=== PATIENT | male | born 1970 | race American Indian/Alaskan Native ===

== ENCOUNTER 2020-04-20 16:15 | Inpatient (IN) | payer MEDICAID ==
--- NOTE | 2020-04-20 16:45 | Cat Scan Report ---
NONENHANCED CT SCAN OF THE HEAD: INDICATION / CLINICAL INFORMATION: 49 years Male; MAIN. TECHNIQUE: Routine CT head without contrast. All CT scans at this location are performed using CT dos e reduction for ALARA by means of automated exposure control. COMPARISON: None. FINDINGS: BRAIN / INTRACRANIAL CONTENTS: No acute hemorrhage, mass effect, midline shift, hydrocephalus, or acu te, large territorial infarct. Multiple areas of chronic ischemia seen in both occipital lobes larger on the left side, right parietal lobe, left frontal lobe, right caudate head and right cerebellar he mispheric white matter No significant white matter abnormality. CRANIOCERVICAL JUNCTION: No significant abnormality. ORBITS: No significant abnormality of visualized orbits. SINUSES / MASTOIDS: No significant abnormality of the visualized paranasal sinuses or mastoid air brianne ls. ADDITIONAL FINDINGS: None. IMPRESSION: No hemorrhage or stroke mimics; no CT findings to suggest acute infarction Multiple areas of chronic ischemia in both cerebral hemispheres and right cerebellar hemisphere CODE STROKE: Time of Communication (MARRIAGE AND FAMILY THERAPIST/CDT): 3:40 PM Central standard time Licensed Practitioner Receiving Report: ER physician Signer Name: Lukas Manjarrez MD Signed: 04/20/2020 4:41 PM Workstation Name: [id number]
[2020-04-20 17:09] LABS: Basophils # (Auto) 0.1 K/mm3 (0.0-0.1); Basophils % (Auto) 1.3 % (0.0-1.8); Eosinophils # (Auto) 0.3 K/mm3 (0.0-0.4); Eosinophils % (Auto) 3.8 % (0.0-4.3); Hematocrit 45.8 % (35.5-45.6); Hemoglobin 15.3 gm/dl (11.8-15.2); Lymphocytes # (Auto) 1.9 K/mm3 (1.2-5.4); Lymphocytes % (Auto) 28.7 % (13.4-35.0); Mean Corpuscular HGB Conc 33 % (32-34); Mean Corpuscular Volume 86 fl (84-94); Monocytes # (Auto) 0.7 K/mm3 (0.0-0.8); Monocytes % (Auto) 10.8 % (0.0-7.3); Platelet Count 296 K/mm3 (140-440); Red Blood Count 5.31 M/mm3 (3.65-5.03); Red Cell Distribution Width 14.1 % (13.2-15.2)
[2020-04-20 17:19] LABS: INR 1.19 (0.87-1.13)
[2020-04-20 17:20] LABS: Partial Thromboplastin Time 33.9 Sec. (24.2-36.6)
[2020-04-20 17:21] LABS: BUN/Creatinine Ratio 9; Blood Urea Nitrogen 14 mg/dL (9-20); Calcium 9.7 mg/dL (8.4-10.2); Hemolysis Index 11
--- NOTE | 2020-04-20 17:33 | Emergency Department Report ---
ED Neuro Deficit HPI - General Chief Complaint: Neuro Symptoms/Deficit Stated Complaint: RT ARM NUMBNESS Time Seen by Provider: 04/20/20 16:21 Source: patient, EMS Mode of arrival: Stretcher Limitations: Physical Limitation - History of Present Illness Initial Comments: Patient is 49 years old male with history of hypertension and previous stroke with right side residual weakness. Patient brought to the emergency room from home as a code stroke. Patient presented with numbness and tingling sensation to the right upper and lower extremity. Patient stated that he went to bed last night around 11 PM with his baseline however he woke up this afternoon around 3 PM with the aforementioned symptoms. Patient denied any increased weakness. Patient denied any headache, neck pain or any new left-sided weakness. Patient also indicated that he has multiple strokes before and he has weakness on both sides. Patient also has a baseline aphasia and dysarthria. Stroke protocol immediately initiated and patient moved to CT for stat CT brain without co ntrast. Stroke teleneurology immediately consulted and patient examined by Dr. Mccain via video conference. CT brain is negative for acute finding. She stated that patient is not a TPA candidate given the unknown time of onset. She also indicated that patient does not need a CTA neck and brain since his symptom is not consistent with obstructed large vessels disease. -: unknown Location: right arm, right leg Presenting Symptoms: Present: Facial Droop/Numbness History of same: Yes Place: home - Related Data Home Medications: Previous Rx's Medication Instructions Recorded Last Taken Type Ondansetron [Zofran Odt] 4 mg PO Q8HR PRN #14 tab.rapdis 03/26/18 Unknown Rx traMADoL [Ultram 50 MG tab] 50 mg PO Q4HR PRN #14 tablet 03/26/18 Unknown Rx Allergies/Adverse Reactions: Allergies Allergy/AdvReac Type Severity Reaction Status Date / Time No Known Allergies Allergy Verified 04/20/20 16:19 ED Review of Systems ROS: Stated complaint: RT ARM NUMBNESS Other details as noted in HPI Comment: All other systems reviewed and negative Constitutional: denies: chills, fever Respiratory: denies: cough, shortness of breath, SOB with exertion, SOB at rest, wheezing Cardiovascular: denies: chest pain Gastrointestinal: denies: abdominal pain, nausea, vomiting Musculoskeletal: denies: back pain Neurological: weakness (chronic), numbness. denies: headache ED Past Medical Hx - Past Medical History Hx Hypertension: Yes Hx CVA: Yes Hx Arthritis: Yes - Surgical History Additional Surgical History: Left wrist, Right Total Knee - Social History Smoking Status: Current Every Day Smoker Substance Use Type: None - Medications Home Medications: Home Medications Medication Instructions Recorded Confirmed Last Taken Type Ondansetron [Zofran Odt] 4 mg PO Q8HR PRN #14 tab.rapdis 03/26/18 Unknown Rx traMADoL [Ultram 50 MG tab] 50 mg PO Q4HR PRN #14 tablet 03/26/18 Unknown Rx ED Neuro Physical Exam - General Limitations: Physical Limitation General appearance: alert, in no apparent distress Suspected Stroke: Yes - Head Head exam: Present: atraumatic, normocephalic, normal inspection - Eye Eye exam: Present: normal appearance - ENT ENT exam: Present: normal exam, normal orophraynx, mucous membranes moist - Neck Neck exam: Present: normal inspection, full ROM. Absent: tenderness, meningismus - Respiratory Respiratory exam: Present: normal lung sounds bilaterally - Cardiovascular Cardiovascular Exam: Present: regular rate, normal rhythm, normal heart sounds - GI/Abdominal GI/Abdominal exam: Present: soft, normal bowel sounds. Absent: distended, tenderness, guarding, rebound, rigid, organomegaly, mass, bruit, pulsatile mass, hernia - Extremities Exam Extremities exam: Present: normal inspection, full ROM, normal capillary refill - Back Exam Back exam: Present: normal inspection, full ROM. Absent: CVA tenderness (R), CVA tenderness (L) - Neurological Exam Neurological exam: Present: alert, oriented X3, CN II-XII intact - NIHSS Assessment Interval: Baseline 1a. Level of Consciousness: alert/keenly responsive 1b. LOC Questions: answers both correctly 1c. LOC Commands: performs tasks correctly 2. Best Gaze: normal 3. Visual: complete hemianopia 4. Facial Palsy: minor paralysis 5b. Motor Arm Right: drift 5a. Motor Arm Left: no drift 6a. Motor Leg Left: no drift 6b. Motor Leg Right: no drift 7. Limb Ataxia: absent 8. Sensory: mild/moderate sensory loss 9. Best Language: mild/moderate aphasia 10. Dysarthria: mild/moderate dysarthria 11. Extinction/Inattention: no abnormality Total Score: 7 Stroke Severity: Moderate Stroke - Psychiatric Psychiatric exam: Present: normal mood - Skin Skin exam: Present: warm, intact, normal color ED Course Vital Signs 04/20/20 04/20/20 04/20/20 16:58 17:16 17:31 Temperature 98.4 F Pulse Rate 76 83 Respiratory 12 16 Rate Blood Pressure 138/89 O2 Sat by Pulse 98 96 Oximetry - Lab Data Result diagrams: 04/20/20 17:00 04/20/20 17:00 Lab Results 04/20/20 04/20/20 04/20/20 Range/Units 17:00 17:00 17:00 WBC 6.8 (4.5-11.0) K/mm3 RBC 5.31 H (3.65-5.03) M/mm3 Hgb 15.3 H (11.8-15.2) gm/dl Hct 45.8 H (35.5-45.6) % MCV 86 (84-94) fl MCH 29 (28-32) pg MCHC 33 (32-34) % RDW 14.1 (13.2-15.2) % Plt Count 296 (140-440) K/mm3 Lymph % (Auto) 28.7 (13.4-35.0) % [place] % (Auto) 10.8 H (0.0-7.3) % Eos % (Auto) 3.8 (0.0-4.3) % Baso % (Auto) 1.3 (0.0-1.8) % Lymph # (Auto) 1.9 (1.2-5.4) K/mm3 [place] # (Auto) 0.7 (0.0-0.8) K/mm3 Eos # (Auto) 0.3 (0.0-0.4) K/mm3 Baso # (Auto) 0.1 (0.0-0.1) K/mm3 Seg Neutrophils % 55.4 (40.0-70.0) % Seg Neutrophils # 3.8 (1.8-7.7) K/mm3 PT 15.1 H (12.2-14.9) Sec. INR 1.19 H (0.87-1.13) APTT 33.9 (24.2-36.6) Sec. Thrombin Time (15.1-19.6) Sec. Sodium 137 (137-145) mmol/L Potassium 4.3 (3.6-5.0) mmol/L Chloride 101.9 (98-107) mmol/L Carbon Dioxide 24 (22-30) mmol/L Anion Gap 15 mmol/L BUN 14 (9-20) mg/dL Creatinine 1.6 H (0.8-1.3) mg/dL Estimated GFR 55 ml/min BUN/Creatinine Ratio 9 % Glucose 101 H (75-100) mg/dL Calcium 9.7 (8.4-10.2) mg/dL Troponin T < 0.010 (0.00-0.029) ng/mL 04/20/20 Range/Units 17:00 WBC (4.5-11.0) K/mm3 RBC (3.65-5.03) M/mm3 Hgb (11.8-15.2) gm/dl Hct (35.5-45.6) % MCV (84-94) fl MCH (28-32) pg MCHC (32-34) % RDW (13.2-15.2) % Plt Count (140-440) K/mm3 Lymph % (Auto) (13.4-35.0) % [place] % (Auto) (0.0-7.3) % Eos % (Auto) (0.0-4.3) % Baso % (Auto) (0.0-1.8) % Lymph # (Auto) (1.2-5.4) K/mm3 [place] # (Auto) (0.0-0.8) K/mm3 Eos # (Auto) (0.0-0.4) K/mm3 Baso # (Auto) (0.0-0.1) K/mm3 Seg Neutrophils % (40.0-70.0) % Seg Neutrophils # (1.8-7.7) K/mm3 PT (12.2-14.9) Sec. INR (0.87-1.13) APTT (24.2-36.6) Sec. Thrombin Time 14.8 L (15.1-19.6) Sec. Sodium (137-145) mmol/L Potassium (3.6-5.0) mmol/L Chloride (98-107) mmol/L Carbon Dioxide (22-30) mmol/L Anion Gap mmol/L BUN (9-20) mg/dL Creatinine (0.8-1.3) mg/dL Estimated GFR ml/min BUN/Creatinine Ratio % Glucose (75-100) mg/dL Calcium (8.4-10.2) mg/dL Troponin T (0.00-0.029) ng/mL - EKG Data -: EKG Interpreted by Me EKG shows normal: sinus rhythm Rate: normal Interpretation: no acute changes - Radiology Data Radiology results: report reviewed - Medical Decision Making Patient is 49 years old male with history of hypertension and previous stroke with right side residual weakness. Patient brought to the emergency room from home as a code stroke. Patient presented with numbness and tingling sensation to the right upper and lower extremity. Patient stated that he went to bed last night around 11 PM with his baseline however he woke up this afternoon around 3 PM with the aforementioned symptoms. Patient denied any increased weakness. Patient denied any headache, neck pain or any new left-sided weakness. Patient also indicated that he has multiple strokes before and he has weakness on both sides. Patient also has a baseline aphasia and dysarthria. Stroke protocol immediately initiated and patient moved to CT for stat CT brain without contrast. Stroke teleneurology immediately consulted and patient examined by Dr. Mccain via video conference. CT brain is negative for acute finding. She stated that patient is not a TPA candidate given the unknown time of onset. She also indicated that patient does not need a CTA neck and brain since his symptom is not consistent with obstructed large vessels disease. Labs reviewed and is unremarkable. EKG shows sinus rhythm. I discussed the patient with Dr. Burnette, he agreed to admit the patient to medical service for further management. Critical Care Time: Yes Critical care time in (mins) excluding proc time.: 30 Critical care attestation.: If time is entered above; I have spent that time in minutes in the direct care of this critically ill patient, excluding procedure time. ED Disposition Clinical Impression: Acute CVA (cerebrovascular accident) Stroke Qualifiers: CVA mechanism: unspecified Qualified Code(s): I63.9 - Cerebral infarction, unspecified Disposition: OP ADMIT IP TO THIS HOSP Is pt being admited?: Yes Condition: Stable Referrals: PRIMARY CARE, [Primary Care Provider] - 3-5 Days
--- NOTE | 2020-04-20 17:35 | Emergency Department Report ---
ED Neuro Deficit HPI - General Chief Complaint: Neuro Symptoms/Deficit Stated Complaint: RT ARM NUMBNESS Time Seen by Provider: 04/20/20 16:21 Source: patient, EMS Mode of arrival: Stretcher Limitations: Physical Limitation - History of Present Illness Initial Comments: [facility] Date of Service: 04/20/2020 16:21:47 Impression: I63.9 - Cerebrovascular accident (CVA), unspecified mechanism (HCC) Comments/Sign-Out: 49 year old male with a history of multiple strokes who presents with right arm tingling. Presentation may be due to new stroke vs exacerbation of prior strokes. Metrics: Last Known Well: 04/19/2020 23:00:00 [facility] Notification Time: 04/20/2020 16:20:49 Arrival Time: 04/20/2020 16:15:00 Stamp Time: 04/20/2020 16:21:47 Time First Login Attempt: 04/20/2020 16:25:00 Video Start Time: 04/20/2020 16:25:00 Symptoms: Right arm tingling NIHSS Start Assessment Time: 04/20/2020 16:30:00 Patient is not a candidate for Alteplase/Activase. Patient was not deemed candidate for Alteplase/Activase thrombolytics because of Resolved symptoms (no residual disabling symptoms). Video End Time: 04/20/2020 16:44:31 CT head showed no acute hemorrhage or acute core infarct. Clinical Presentation is not Suggestive of Large Vessel Occlusive Disease ED Physician notified of diagnostic impression and management plan on 04/20/2020 16:44:00 Our recommendations are outlined below. Recommendations: Activate Stroke Protocol Admission/Order Set Stroke/Telemetry Floor Neuro Checks Bedside Swallow Eval DVT Prophylaxis IV Fluids, Normal Saline Head of Bed 30 Degrees Euglycemia and Avoid Hyperthermia (PRN Acetaminophen) Antiplatelet Therapy Recommended Routine Consultation with Inhouse Neurology for Follow up Care Sign Out: Discussed with Emergency Department Provider History of Present Illness: Patient is a 49 year old Male. Patient was brought by EMS for symptoms of Right arm tingling 49 year old male with a history of stroke in August 2019 with residual right side weakness who presents to the hospital because of right arm tingling. Patient woke up this afternoon around 15:30. When he woke up from his nap he noticed tingling in his right arm from his elbow down. He denies any other new stroke like symptoms. Past Medical History: Hypertension Hyperlipidemia Stroke There is NO history of Diabetes Mellitus Examination: BP(138/89), Pulse(76), Blood Glucose(101) 1A: Level of Consciousness - Alert; keenly responsive + 0 1B: Ask Month and Age - Both Questions Right + 0 1C: Blink Eyes & Squeeze Hands - Performs Both Tasks + 0 2: Test Horizontal Extraocular Movements - Normal + 0 3: Test Visual [place] - Complete Hemianopia + 2 4: Test Facial Palsy (Use Grimace if Obtunded) - Minor paralysis (flat nasolabial fold, smile asymmetry) + 1 5A: Test Left Arm Motor Drift - No Drift for 10 Seconds + 0 5B: Test Right Arm Motor Drift - Drift, but doesn't hit bed + 1 6A: Test Left Leg Motor Drift - No Drift for 5 Seconds + 0 6B: Test Right Leg Motor Drift - No Drift for 5 Seconds + 0 7: Test Limb Ataxia (FNF/Heel-Etienne) - No Ataxia + 0 8: Test Sensation - Mild-Moderate Loss: Less Sharp/More Dull + 1 9: Test Language/Aphasia - Mild-Moderate Aphasia: Some Obvious Changes, Without Significant Limitation + 1 10: Test Dysarthria - Mild-Moderate Dysarthria: Slurring but can be understood + 1 11: Test Extinction/Inattention - No abnormality + 0 NIHSS Score: 7 Pre-Morbid Modified Ranking Scale: 4 Points = Moderately severe disability; unable to walk and attend to bodily nee ds without assistance Patient/Family was informed the Neurology Consult would happen via TeleHealth consult by way of interactive audio and video telecommunications and consented to receiving care in this manner. Due to the immediate potential for life-threatening deterioration due to underlying acute neurologic illness, I spent 30 minutes providing critical care. This time includes time for face to face visit via telemedicine, review of medical records, imaging studies and discussion of findings with providers, the patient and/or family. Dr Susana Alfaro [facility] Case [id number] - Related Data Home Medications: Previous Rx's Medication Instructions Recorded Last Taken Type Ondansetron [Zofran Odt] 4 mg PO Q8HR PRN #14 tab.rapdis 03/26/18 Unknown Rx traMADoL [Ultram 50 MG tab] 50 mg PO Q4HR PRN #14 tablet 03/26/18 Unknown Rx Allergies/Adverse Reactions: Allergies Allergy/AdvReac Type Severity Reaction Status Date / Time No Known Allergies Allergy Verified 04/20/20 16:19 ED Review of Systems ROS: Stated complaint: RT ARM NUMBNESS Other details as noted in HPI ED Past Medical Hx - Past Medical History Hx Hypertension: Yes Hx CVA: Yes Hx Arthritis: Yes - Surgical History Additional Surgical History: Left wrist, Right Total Knee - Social History Smoking Status: Never Smoker - Medications Home Medications: Home Medications Medication Instructions Recorded Confirmed Last Taken Type Ondansetron [Zofran Odt] 4 mg PO Q8HR PRN #14 tab.rapdis 03/26/18 Unknown Rx traMADoL [Ultram 50 MG tab] 50 mg PO Q4HR PRN #14 tablet 03/26/18 Unknown Rx ED Neuro Physical Exam - General Limitations: Physical Limitation Suspected Stroke: Yes - NIHSS Assessment Interval: Baseline 1a. Level of Consciousness: alert/keenly responsive 1b. LOC Questions: answers both correctly 1c. LOC Commands: performs tasks correctly 2. Best Gaze: normal 3. Visual: complete hemianopia 4. Facial Palsy: minor paralysis 5b. Motor Arm Right: drift 5a. Motor Arm Left: no drift 6a. Motor Leg Left: no drift 6b. Motor Leg Right: no drift 7. Limb Ataxia: absent 8. Sensory: mild/moderate sensory loss 9. Best Language: mild/moderate aphasia 10. Dysarthria: mild/moderate dysarthria 11. Extinction/Inattention: no abnormality Total Score: 7 Stroke Severity: Moderate Stroke ED Course Vital Signs 04/20/20 04/20/20 04/20/20 16:58 17:16 17:31 Temperature 98.4 F Pulse Rate 76 83 Respiratory 12 16 Rate Blood Pressure 138/89 O2 Sat by Pulse 98 96 Oximetry - Lab Data Result diagrams: 04/20/20 17:00 04/20/20 17:00 Lab Results 04/20/20 04/20/20 04/20/20 Range/Units 17:00 17:00 17:00 WBC 6.8 (4.5-11.0) K/mm3 RBC 5.31 H (3.65-5.03) M/mm3 Hgb 15.3 H (11.8-15.2) gm/dl Hct 45.8 H (35.5-45.6) % MCV 86 (84-94) fl MCH 29 (28-32) pg MCHC 33 (32-34) % RDW 14.1 (13.2-15.2) % Plt Count 296 (140-440) K/mm3 Lymph % (Auto) 28.7 (13.4-35.0) % [place] % (Auto) 10.8 H (0.0-7.3) % Eos % (Auto) 3.8 (0.0-4.3) % Baso % (Auto) 1.3 (0.0-1.8) % Lymph # (Auto) 1.9 (1.2-5.4) K/mm3 [place] # (Auto) 0.7 (0.0-0.8) K/mm3 Eos # (Auto) 0.3 (0.0-0.4) K/mm3 Baso # (Auto) 0.1 (0.0-0.1) K/mm3 Seg Neutrophils % 55.4 (40.0-70.0) % Seg Neutrophils # 3.8 (1.8-7.7) K/mm3 PT 15.1 H (12.2-14.9) Sec. INR 1.19 H (0.87-1.13) APTT 33.9 (24.2-36.6) Sec. Thrombin Time (15.1-19.6) Sec. Sodium 137 (137-145) mmol/L Potassium 4.3 (3.6-5.0) mmol/L Chloride 101.9 (98-107) mmol/L Carbon Dioxide 24 (22-30) mmol/L Anion Gap 15 mmol/L BUN 14 (9-20) mg/dL Creatinine 1.6 H (0.8-1.3) mg/dL Estimated GFR 55 ml/min BUN/Creatinine Ratio 9 % Glucose 101 H (75-100) mg/dL Calcium 9.7 (8.4-10.2) mg/dL Troponin T < 0.010 (0.00-0.029) ng/mL 04/20/20 Range/Units 17:00 WBC (4.5-11.0) K/mm3 RBC (3.65-5.03) M/mm3 Hgb (11.8-15.2) gm/dl Hct (35.5-45.6) % MCV (84-94) fl MCH (28-32) pg MCHC (32-34) % RDW (13.2-15.2) % Plt Count (140-440) K/mm3 Lymph % (Auto) (13.4-35.0) % [place] % (Auto) (0.0-7.3) % Eos % (Auto) (0.0-4.3) % Baso % (Auto) (0.0-1.8) % Lymph # (Auto) (1.2-5.4) K/mm3 [place] # (Auto) (0.0-0.8) K/mm3 Eos # (Auto) (0.0-0.4) K/mm3 Baso # (Auto) (0.0-0.1) K/mm3 Seg Neutrophils % (40.0-70.0) % Seg Neutrophils # (1.8-7.7) K/mm3 PT (12.2-14.9) Sec. INR (0.87-1.13) APTT (24.2-36.6) Sec. Thrombin Time 14.8 L (15.1-19.6) Sec. Sodium (137-145) mmol/L Potassium (3.6-5.0) mmol/L Chloride (98-107) mmol/L Carbon Dioxide (22-30) mmol/L Anion Gap mmol/L BUN (9-20) mg/dL Creatinine (0.8-1.3) mg/dL Estimated GFR ml/min BUN/Creatinine Ratio % Glucose (75-100) mg/dL Calcium (8.4-10.2) mg/dL Troponin T (0.00-0.029) ng/mL Critical care attestation.: If time is entered above; I have spent that time in minutes in the direct care of this critically ill patient, excluding procedure time. ED Disposition Clinical Impression: Stroke Qualifiers: CVA mechanism: unspecified Qualified Code(s): I63.9 - Cerebral infarction, unspecified Disposition: DC-09 OP ADMIT IP TO THIS HOSP Is pt being admited?: Yes Condition: Stable Referrals: PRIMARY CARE,MD [Primary Care Provider] - 3-5 Days
[2020-04-20] MEDS ORDERED: MAGNESIUM HYDROXIDE (MOM) ORAL LIQD UDC PO PRN (18:42)
[2020-04-20] MEDS ORDERED: PROMETHAZINE 25 MG RECT SUPP PR PRN (18:42)
[2020-04-20] MEDS ORDERED: METOCLOPRAMIDE 10 MG TAB PO PRN (18:42)
[2020-04-20] MEDS ORDERED: ACETAMINOPHEN 325 MG TAB PO PRN (18:42)
[2020-04-20] MEDS ORDERED: ONDANSETRON 4 MG/2 ML INJ IV PRN (18:42)
--- NOTE | 2020-04-20 18:42 | History and Physical Report ---
History of Present Illness Chief complaint: I cant move my arm History of present illness: 49 YO Male with HTN, CVA with RHP, OA, Nicotine Dependence presents to ED for evaluation. Pt states that he has experienced new onset of worsening weakness in his right arm. Pt states that he was in his usual state of health at bedtime around 2200hrs. Pt reports that he awoke from sleep around 0300hrs with worsening right arm weakness and was unable to move his right arm as well as slurred speech which is worse than his baseline. EMS notified and upon arrival the patient was found to be in distress with a neurological deficit. A code stroke was called and the patient was transported to [facility] for further care and evaluation of the aforementioned symptoms. The patient was seen and evaluated in ED and was found to have clinical symptoms consistent with CVA. Pt initiated on CVA protocol. Teleneurology consulted. Pt deemed not a candidate for TPA as per teleneurology. Patient is 49 years old male with history of hypertension and previous stroke with right side residual weakness. Patient brought to the emergency room from home as a code stroke. Patient presented with numbness and tingling sensation to the right upper and lower extremity. Patient stated that he went to bed last night around 11 PM with his baseline however he woke up this afternoon around 3 PM with the aforementioned symptoms. Patient denied any increased weakness. Patient denied any headache, neck pain or any new left-sided weakness. Patient also indicated that he has multiple strokes before and he has weakness on both sides. Patient also has a baseline aphasia and dysarthria. Stroke protocol immediately initiated and patient moved to CT for stat CT brain without contrast. Stroke teleneurology immediately consulted and patient examined by Dr. Mccain via video conference. CT brain is negative for acute finding. She stated that patient is not a TPA candidate given the unknown time of onset. She also indicated that patient does not need a CTA neck and brain since his symptom is not consistent with obstructed large vessels disease. -: unknown Location: right arm, right leg Presenting Symptoms: Present: Facial Droop/Numbness History of same: Yes Place: home - Related Data Home Medications: Previous Rx's Medication Instructions Recorded Last Taken Type Ondansetron [Zofran Odt] 4 mg PO Q8HR PRN #14 tab.rapdis 03/26/18 Unknown Rx traMADoL [Ultram 50 MG tab] 50 mg PO Q4HR PRN #14 tablet 03/26/18 Unknown Rx Allergies/Adverse Reactions: Allergies Allergy/AdvReac Type Severity Reaction Status Date / Time No Known Allergies Allergy Verified 04/20/20 16:19 ED Review of Systems ROS: Stated complaint: RT ARM NUMBNESS Other details as noted in HPI Comment: All other systems reviewed and negative Constitutional: denies: chills, fever Respiratory: denies: cough, shortness of breath, SOB with exertion, SOB at rest, wheezing Cardiovascular: denies: chest pain Gastrointestinal: denies: abdominal pain, nausea, vomiting Musculoskeletal: denies: back pain Neurological: weakness (chronic), numbness. denies: headache ED Past Medical Hx - Past Medical History Hx Hypertension: Yes Hx CVA: Yes Hx Arthritis: Yes - Surgical History Additional Surgical History: Left wrist, Right Total Knee - Social History Smoking Status: Current Every Day Smoker Substance Use Type: None Past History Past Medical History: arthritis, hypertension, stroke Past Surgical History: No surgical history Social history: single, smoking. denies: alcohol abuse, prescription drug abuse Family history: hypertension Medications and Allergies Allergies Allergy/AdvReac Type Severity Reaction Status Date / Time No Known Allergies Allergy Verified 04/20/20 16:19 Home Medications Medication Instructions Recorded Confirmed Last Taken Type Ondansetron [Zofran Odt] 4 mg PO Q8HR PRN #14 tab.rapdis 03/26/18 Unknown Rx traMADoL [Ultram 50 MG tab] 50 mg PO Q4HR PRN #14 tablet 03/26/18 Unknown Rx Review of Systems Constitutional: no weight loss, no weight gain, no fever, no chills Ears, nose, mouth and throat: no ear pain, no ear discharge, no tinnitis, no decreased hearing, no nose pain, no nasal congestion Cardiovascular: no chest pain, no orthopnea, no rapid/irregular heart beat, no edema, no syncope, no lightheadedness Respiratory: no cough, no cough with sputum, no excessive sputum, no hemoptysis, no shortness of breath Gastrointestinal: no abdominal pain, no nausea, no vomiting, no diarrhea, no constipation Genitourinary Male: no hematuria, no flank pain, no discharge, no urinary frequency, no urinary hesitancy Rectal: no pain, no incontinence, no bleeding Musculoskeletal: no neck stiffness, no neck pain, no shooting arm pain, no arm numbness/tingling, no low back pain, no shooting leg pain Integumentary: no rash, no pruritis, no redness, no sores, no wounds Neurological: weakness, change in speech, gait dysfunction, motor disturbance, no transient paralysis, no paralysis, no parathesias, no numbness, no tingling, no vertigo Psychiatric: no anxiety, no memory loss, no change in sleep habits, no sleep disturbances, no insomnia, no hypersomnia, no change in appetite Endocrine: no cold intolerance, no heat intolerance, no polyphagia, no excessive thirst, no polydipsia, no nocturia Hematologic/Lymphatic: no easy bruising, no easy bleeding Allergic/Immunologic: no urticaria, no allergic rhinitis Exam - Constitutional Vitals: Temp Pulse Resp BP Pulse Ox 98.4 F 83 16 138/89 96 04/20/20 17:31 04/20/20 17:16 04/20/20 17:16 04/20/20 17:16 04/20/20 17:16 General appearance: Present: mild distress - EENT Eyes: Present: PERRL ENT: hearing intact, clear oral mucosa - Neck Neck: Present: supple, normal ROM - Respiratory Respiratory effort: normal Respiratory: bilateral: CTA - Cardiovascular Heart Sounds: Present: S1 & S2. Absent: rub, click - Extremities Extremities: pulses symmetrical, No edema Peripheral Pulses: within normal limits - Abdominal General gastrointestinal: Present: soft, non-tender, non-distended, normal bowel sounds Male genitourinary: Present: normal - Integumentary Integumentary: Present: clear, warm, dry - Musculoskeletal Musculoskeletal: right sided weakness - Psychiatric Psychiatric: appropriate mood/affect, intact judgment & insight - Neurologic Neurologic: CNII-XII intact, focal deficits, no moves all extremities, no gait normal HEART Score - HEART Score Troponin: Troponin T < 0.010 ng/mL (0.00-0.029) 04/20/20 17:00 Results - Labs CBC & Chem 7: 04/20/20 17:00 04/20/20 17:00 Labs: Abnormal lab results 04/20/20 04/20/20 04/20/20 Range/Units 17:00 17:00 17:00 RBC 5.31 H (3.65-5.03) M/mm3 Hgb 15.3 H (11.8-15.2) gm/dl Hct 45.8 H (35.5-45.6) % [place] % (Auto) 10.8 H (0.0-7.3) % PT 15.1 H (12.2-14.9) Sec. INR 1.19 H (0.87-1.13) Thrombin Time (15.1-19.6) Sec. Creatinine 1.6 H (0.8-1.3) mg/dL Glucose 101 H (75-100) mg/dL 04/20/20 Range/Units 17:00 RBC (3.65-5.03) M/mm3 Hgb (11.8-15.2) gm/dl Hct (35.5-45.6) % [place] % (Auto) (0.0-7.3) % PT (12.2-14.9) Sec. INR (0.87-1.13) Thrombin Time 14.8 L (15.1-19.6) Sec. Creatinine (0.8-1.3) mg/dL Glucose (75-100) mg/dL Assessment and Plan - Patient Problems (1) CVA (cerebral vascular accident) Current Visit: Yes Status: Acute Qualifiers: Laterality of affected vessel: right Plan to address problem: CVA Protocol: CT head, Physical therapy, Occupational Therapy, Speech Therapy, Antiplatelet therapy, lipid panel, statin therapy, neuro check, supportive care. (2) ARIEL (acute kidney injury) Current Visit: Yes Status: Acute Plan to address problem: Monitor UOP q shift, bmp, repeat bmp in am to monitor serum creatnine. (3) Nicotine dependence Current Visit: Yes Status: Acute Qualifiers: Nicotine product type: cigarettes Substance use status: in withdrawal Qualified Code(s): F17.213 - Nicotine dependence, cigarettes, with withdrawal Plan to address problem: supportive care, smoking cessation counseling, behavioral change counseling +15 minutes. (4) Right hemiparesis Current Visit: Yes Status: Acute Plan to address problem: PT consulted, supportive care. (5) HTN (hypertension) Current Visit: Yes Status: Acute Qualifiers: Hypertension type: essential hypertension Qualified Code(s): I10 - Essential (primary) hypertension Plan to address problem: Monitor BP q shift, continue medical management. (6) Osteoarthritis Current Visit: Yes Status: Acute Plan to address problem: NSAID therapy as tolerated, supportive care. (7) DVT prophylaxis Current Visit: Yes Status: Acute Plan to address problem: SCD to BLE while in bed, prophylactic anticoagulation
[2020-04-21 05:42] LABS: Chol/HDL Ratio 2.78 %
[2020-04-21] MEDS: ASPIRIN 325 MG TAB PO SCH (10:30)
--- NOTE | 2020-04-21 21:19 | Progress Note ---
Assessment and Plan - Patient Problems (1) CVA (cerebral vascular accident) Current Visit: Yes Status: Acute Qualifiers: Laterality of affected vessel: right Plan to address problem: CVA Protocol: CT head reviewed, Physical therapy, Occupational Therapy, Speech Therapy, Antiplatelet therapy, lipid panel, statin therapy, neuro check, supportive care. Discharge planning in a.m. with home physical therapy and Occupational Therapy. (2) ARIEL (acute kidney injury) Current Visit: Yes Status: Acute Plan to address problem: Monitor UOP q shift, bmp, repeat bmp in am to monitor serum creatnine. (3) Nicotine dependence Current Visit: Yes Status: Acute Qualifiers: Nicotine product type: cigarettes Substance use status: in withdrawal Qualified Code(s): F17.213 - Nicotine dependence, cigarettes, with withdrawal Plan to address problem: supportive care, smoking cessation counseling, behavioral change counseling +15 minutes. (4) Right hemiparesis Current Visit: Yes Status: Acute Plan to address problem: PT consulted, supportive care. (5) HTN (hypertension) Current Visit: Yes Status: Acute Qualifiers: Hypertension type: essential hypertension Qualified Code(s): I10 - Essential (primary) hypertension Plan to address problem: Monitor BP q shift, continue medical management. (6) Osteoarthritis Current Visit: Yes Status: Acute Plan to address problem: NSAID therapy as tolerated, supportive care. (7) DVT prophylaxis Current Visit: Yes Status: Acute Plan to address problem: SCD to BLE while in bed, prophylactic anticoagulation History Interval history: 49 YO Male with HTN, CVA with RHP, OA, Nicotine Dependence HD #2 with CVA. Patient resting comfortably in bed. Patient denies pain. No reported nursing events. Discharge planning in a.m. Hospitalist Physical - Constitutional Vitals: Temp Pulse Resp BP Pulse Ox 98.9 F 89 20 107/79 96 04/21/20 20:10 04/21/20 20:10 04/21/20 20:10 04/21/20 20:10 04/21/20 20:10 General appearance: Present: mild distress - EENT Eyes: Present: PERRL, EOM intact - Neck Neck: Present: supple - Respiratory Respiratory: bilateral: CTA - Cardiovascular Rhythm: regular Heart Sounds: Present: S1 & S2 - Extremities Extremities: no ischemia Peripheral Pulses: within normal limits - Abdominal General gastrointestinal: soft, non-tender, non-distended - Integumentary Integumentary: Present: clear, dry - Psychiatric Psychiatric: cooperative - Neurologic Neurologic: CNII-XII intact, focal deficits, no gait normal HEART Score - HEART Score Troponin: Troponin T < 0.010 ng/mL (0.00-0.029) 04/20/20 17:00 Results - Labs CBC & Chem 7: 04/20/20 17:00 12 17:00 Labs: Laboratory Last Values WBC 6.8 K/mm3 (4.5-11.0) 04/20/20 17:00 RBC 5.31 M/mm3 (3.65-5.03) H 04/20/20 17:00 Hgb 15.3 gm/dl (11.8-15.2) H 04/20/20 17:00 Hct 45.8 % (35.5-45.6) H 04/20/20 17:00 MCV 86 fl (84-94) 04/20/20 17:00 MCH 29 pg (28-32) 04/20/20 17:00 MCHC 33 % (32-34) 04/20/20 17:00 RDW 14.1 % (13.2-15.2) 04/20/20 17:00 Plt Count 296 K/mm3 (140-440) 04/20/20 17:00 Lymph % (Auto) 28.7 % (13.4-35.0) 04/20/20 17:00 [place] % (Auto) 10.8 % (0.0-7.3) H 04/20/20 17:00 Eos % (Auto) 3.8 % (0.0-4.3) 04/20/20 17:00 Baso % (Auto) 1.3 % (0.0-1.8) 04/20/20 17:00 Lymph # (Auto) 1.9 K/mm3 (1.2-5.4) 04/20/20 17:00 [place] # (Auto) 0.7 K/mm3 (0.0-0.8) 04/20/20 17:00 Eos # (Auto) 0.3 K/mm3 (0.0-0.4) 04/20/20 17:00 Baso # (Auto) 0.1 K/mm3 (0.0-0.1) 04/20/20 17:00 Seg Neutrophils % 55.4 % (40.0-70.0) 04/20/20 17:00 Seg Neutrophils # 3.8 K/mm3 (1.8-7.7) 04/20/20 17:00 PT 15.1 Sec. (12.2-14.9) H 04/20/20 17:00 INR 1.19 (0.87-1.13) H 04/20/20 17:00 APTT 33.9 Sec. (24.2-36.6) 04/20/20 17:00 Thrombin Time 14.8 Sec. (15.1-19.6) L 04/20/20 17:00 Sodium 137 mmol/L (137-145) 04/20/20 17:00 Potassium 4.3 mmol/L (3.6-5.0) 04/20/20 17:00 Chloride 101.9 mmol/L (98-107) 04/20/20 17:00 Carbon Dioxide 24 mmol/L (22-30) 04/20/20 17:00 Anion Gap 15 mmol/L 04/20/20 17:00 BUN 14 mg/dL (9-20) 04/20/20 17:00 Creatinine 1.6 mg/dL (0.8-1.3) H 04/20/20 17:00 Estimated GFR 55 ml/min 04/20/20 17:00 BUN/Creatinine Ratio 9 % 04/20/20 17:00 Glucose 101 mg/dL (75-100) H 04/20/20 17:00 POC Glucose 98 mg/dL (70-105) 04/21/20 17:20 Calcium 9.7 mg/dL (8.4-10.2) 04/20/20 17:00 Troponin T < 0.010 ng/mL (0.00-0.029) 04/20/20 17:00 Triglycerides 91 mg/dL (2-149) 04/21/20 05:04 Cholesterol 92 mg/dL (50-199) 04/21/20 05:04 LDL Cholesterol Direct 48 mg/dL (50-130) L 04/21/20 05:04 HDL Cholesterol 33 mg/dL (40-59) L 04/21/20 05:04 Cholesterol/HDL Ratio 2.78 % 12/09/20 05:04 Torres/IV: Voiding Method Urinal IV Catheter Type [Right Hand] INT / Saline Lock Active Medications - Current Medications Current Medications: Generic Name Dose Route Start Last Admin Trade Name Freq PRN Reason Stop Dose Admin Acetaminophen 650 mg 04/20/20 18:42 Tylenol PO Q4H PRN Pain, Mild (1-3) Aspirin 325 mg 04/21/20 10:00 04/21/20 10:30 Aspirin PO 325 mg QDAY [place] Administration Atorvastatin Calcium 40 mg 04/20/20 22:00 Lipitor PO QHS [place] Bisacodyl 10 mg 04/20/20 18:42 Dulcolax MT QDAY PRN Constipation Magnesium Hydroxide 30 ml 04/20/20 18:42 Milk Of Magnesia PO Q4H PRN Constipation Metoclopramide HCl 10 mg 04/20/20 18:42 Reglan PO Q6H PRN Nausea And Vomiting Ondansetron HCl 4 mg 04/20/20 18:42 Zofran IV Q8H PRN Nausea And Vomiting Promethazine HCl 25 mg 04/20/20 18:42 Phenergan MT Q6H PRN Nausea And Vomiting Sodium Chloride 10 ml 04/20/20 18:42 Sodium Chloride Flush Syringe 10 Ml IV PRN PRN LINE FLUSH
[2020-04-22] MEDS: ASPIRIN 325 MG TAB PO SCH (10:13)
--- NOTE | 2020-04-22 11:42 | Discharge Summary ---
Providers - Providers Date of Admission: 04/20/20 18:43 Attending physician: KISHORE MUSA 04/20/20 18:43 Occupational Therapy Evaluate and Treat [CONS] Routine Comment: Reason For Exam: Neuro deficits Physical Therapy Evaluation and Treat [CONS] Routine Comment: Reason For Exam: Neuro deficits 04/20/20 18:44 Speech Therapy Evaluation and Treat [CONS] Routine Reason For Exam: swallow eval 04/21/20 10:56 Physical Therapy Evaluation and Treat [CONS] Routine Comment: outpatient PT Reason For Exam: debility Date of last referral: 04/21/20 04/21/20 10:58 Occupational Therapy Evaluate and Treat [CONS] Routine Comment: outpatient occupational therapy Reason For Exam: CVA Primary care physician: [employer] Hospitalization Condition: Stable Disposition: DC-30 STILL A PATIENT - Discharge Diagnoses (1) CVA (cerebral vascular accident) Status: Acute Qualifiers: Laterality of affected vessel: right (2) ARIEL (acute kidney injury) Status: Acute (3) Nicotine dependence Status: Acute Qualifiers: Nicotine product type: cigarettes Substance use status: in withdrawal Qualified Code(s): F17.213 - Nicotine dependence, cigarettes, with withdrawal (4) Right hemiparesis Status: Acute (5) HTN (hypertension) Status: Acute Qualifiers: Hypertension type: essential hypertension Qualified Code(s): I10 - Essential (primary) hypertension (6) Osteoarthritis Status: Acute (7) DVT prophylaxis Status: Acute Exam - Constitutional Vitals: Temp Pulse Resp BP Pulse Ox 98.4 F 84 20 115/78 97 04/22/20 07:49 04/22/20 07:49 04/22/20 04:07 04/22/20 07:49 04/22/20 09:22 Plan Follow up with: PRIMARY CARE, [Primary Care Provider] - 3-5 Days Prescriptions: Aspirin [Aspirin BABY CHEW TAB] 81 mg PO QDAY #30 tab.chew Clopidogrel [Plavix] 75 mg PO QDAY #30 tablet Simvastatin 40 mg PO QHS #30 tablet Other Discharge Orders: Occupational Therapy (Amb) Location: None Selected Physicial Therapy (Amb) Location: None Selected
[2020-04-22 12:29] VITALS: BP 115/74
== END 2020-04-22 17:00 | disposition home or self-care (01) | DRG 65 ==
LOC: ED 16:15 → OBSVTOIN 18:43 → 4A 18:43
PROVIDERS: ADMIT Internal Medicine; ATTEND Internal Medicine
DX: I63.9 Cerebral infarction, unspecified (principal); N17.9 Acute kidney failure, unspecified; G81.91 Hemiplegia, unspecified affecting right dominant side; F17.213 Nicotine dependence, cigarettes, with withdrawal; R47.01 Aphasia; R47.1 Dysarthria and anarthria; R29.810 Facial weakness; I10 Essential (primary) hypertension; M19.90 Unspecified osteoarthritis, unspecified site; E78.5 Hyperlipidemia, unspecified; R29.707 NIHSS score 7; Z82.49 Family history of ischemic heart disease and other diseases of the circulatory system
CPT/HCPCS: 36415; 70450; 80048; 80061; 82962; 84484; 85025; 85610; 85670; 85730; 87116; 93005; G0378; A9270-GY